=== PATIENT | male | born 1940 | race Hispanic/Latino ===

== ENCOUNTER 2020-10-15 07:32 | Outpatient (CLI) | payer MEDICARE, MEDICAID, SELFPAY | END 2020-10-15 07:33 | disposition home or self-care (01) | LOC: ANHAUDIO 07:40 | PROVIDERS: PCP Physician Assistant; Visit Provider Physician Assistant | DX: H91.93 Unspecified hearing loss, bilateral (principal) | CPT/HCPCS: 92553; 92555; 92567 ==

== ENCOUNTER 2020-11-12 07:52 | Outpatient (RCR) | payer MEDICAID, SELFPAY | END 2020-11-12 23:59 | disposition home or self-care (01) | LOC: ANHAUDIO 07:52 | PROVIDERS: PCP Physician Assistant; Visit Provider Physician Assistant | DX: Z46.1 Encounter for fitting and adjustment of hearing aid (principal) | CPT/HCPCS: V5160; V5261 ==